=== PATIENT | female | born 1980 | race African-American/Black ===

== ENCOUNTER 2017-05-31 14:00 | Emergency (ER) | payer OTHER ==
[~2017-05-31] VITALS: Ht 154.9 cm; Wt 145.1 kg
[2017-05-31] MEDS ORDERED: IBUPROFEN 600 MG TABLET PO ONE (14:15)
[2017-05-31] MEDS ORDERED: IBUPROFEN 600 MG TABLET ONE (14:27)
--- NOTE | 2017-05-31 14:51 | NUR ---
Patient discharged to home in stable conditon. Written and verbal after care instructions given. Patient verbalizes understanding of instructions.
== END 2017-05-31 14:54 | disposition home or self-care (01) ==
LOC: ER 14:00
DX: S83.91XA Sprain of unspecified site of right knee, initial encounter (principal); J45.909 Unspecified asthma, uncomplicated; W18.30XA Fall on same level, unspecified, initial encounter; Y93.89 Activity, other specified; Y92.9 Unspecified place or not applicable; Y99.9 Unspecified external cause status
CPT/HCPCS: 73564; 99284; A4663

== ENCOUNTER 2017-07-12 03:50 | Emergency (ER) | payer OTHER ==
[~2017-07-12] VITALS: Ht 154.9 cm; Wt 145.1 kg
--- NOTE | 2017-07-12 04:00 | NUR ---
PATIENT WALKED INTO ER C/O RIGHT KNEE PAIN X2 MONTHS. HERE FOR WORSENING SYMPTOMS
[2017-07-12] MEDS ORDERED: PROMETHAZINE HCL 25 MG/1 ML VIAL IM ONE (04:15)
[2017-07-12] MEDS ORDERED: HYDROMORPHONE 1 MG/1 ML DISP.SYRIN IM ONE (04:15)
--- NOTE | 2017-07-12 04:22 | NUR ---
Crutches dispensed. Pt instructed on proper use of crutches. Patient able to demonstrate correct use of crutches.
--- NOTE | 2017-07-12 04:25 | NUR ---
Patient discharged to home in stable conditon WITH SISTER TAKING PATIENT HOME. Written and verbal after care instructions given. Patient verbalizes understanding of instructions.
[2017-07-12 04:26] VITALS: BP 142/86
[2017-07-12] MEDS ORDERED: PROMETHAZINE HCL 25 MG/1 ML VIAL ONE (04:28)
[2017-07-12] MEDS ORDERED: HYDROMORPHONE 4 MG/1 ML DISP.SYRIN ONE (04:29)
== END 2017-07-12 04:27 | disposition home or self-care (01) ==
LOC: ER 03:53
DX: M25.561 Pain in right knee (principal); J45.909 Unspecified asthma, uncomplicated
CPT/HCPCS: A4663; J1170; J2550

== ENCOUNTER 2017-09-30 21:16 | Emergency (ER) | payer OTHER ==
[~2017-09-30] VITALS: Ht 154.9 cm; Wt 154.2 kg
[2017-09-30] MEDS ORDERED: AMOXICILLIN-CLAVUL 875-125MG TABLET PO ONE (22:45)
[2017-09-30] MEDS ORDERED: DEXAMETHASONE SOD PHOSPHATE 4 MG INJ IM ONE (22:45)
[2017-09-30] MEDS ORDERED: AMOXICILLIN-CLAVUL 875-125MG TABLET ONE (22:46)
[2017-09-30] MEDS ORDERED: DEXAMETHASONE SOD PHOSPHATE 4 MG INJ ONE (22:46)
--- NOTE | 2017-09-30 22:52 | NUR ---
Patient discharged to home in stable conditon. Written and verbal after care instructions given. Patient verbalizes understanding of instructions. Ambulated from ER with stable gait. All belongings with patient. VSS. No c/o pain or acute distress at this time. Respirations even and unlaored. No chest pain/nausea/vomiting at this time.
[2017-09-30 22:57] VITALS: BP 140/77
== END 2017-09-30 22:58 | disposition home or self-care (01) ==
LOC: ER 21:17
DX: K12.2 Cellulitis and abscess of mouth (principal); J02.9 Acute pharyngitis, unspecified; J04.0 Acute laryngitis; B35.0 Tinea barbae and tinea capitis; J45.909 Unspecified asthma, uncomplicated
CPT/HCPCS: 96372; 99283; J1100

== ENCOUNTER 2017-10-10 15:05 | Emergency (ER) | payer OTHER ==
[~2017-10-10] VITALS: Ht 154.9 cm; Wt 154.2 kg
--- NOTE | 2017-10-10 15:45 | NUR ---
Patient discharged to home in stable conditon. Written and verbal after care instructions given. Patient verbalizes understanding of instructions.
== END 2017-10-10 15:54 | disposition home or self-care (01) ==
LOC: ER 15:05
DX: H10.9 Unspecified conjunctivitis (principal); J45.909 Unspecified asthma, uncomplicated
CPT/HCPCS: A4663

== ENCOUNTER 2019-06-11 16:24 | Emergency (ER) | payer OTHER ==
[~2019-06-11] VITALS: Ht 157.5 cm; Wt 154.2 kg
--- NOTE | 2019-06-11 16:45 | NUR ---
PATIENT WAS SEEN BY .
--- NOTE | 2019-06-11 17:00 | NUR ---
THROAT SWAB SPECIMEN SENT TO LAB
--- NOTE | 2019-06-11 17:45 | NUR ---
DC, RX AND FOLLOW UP INSTRUCTIONS GIVEN AND EXPLAINED TO PATIENT WHO STATES SHE UNDERSTANDS ALL INSTRUCTIONS.
== END 2019-06-11 17:47 | disposition home or self-care (01) ==
LOC: ER 16:24
DX: J02.9 Acute pharyngitis, unspecified (principal); B34.9 Viral infection, unspecified; J45.909 Unspecified asthma, uncomplicated
CPT/HCPCS: 36415; 86403; 87070; A4663

== ENCOUNTER 2019-09-29 12:48 | Emergency (ER) | payer OTHER ==
[~2019-09-29] VITALS: Ht 157.5 cm; Wt 172.4 kg
--- NOTE | 2019-09-29 13:10 | NUR ---
PATIENT IS IN ROOM 4B. PLACED ON A MONITOR. 12 LEAD EKG IN PROCESS....
[2019-09-29 14:19] LABS: CREATININE 0.8 mg/dL (0.6-1.3); POTASSIUM 4.4 mmol/L (3.5-5.1)
[2019-09-29 14:29] LABS: BASOPHILS % (AUTO) 0.3 % (0.0-2.0); EOSINOPHILS # (AUTO) 0.2 K/uL (0.0-0.7); EOSINOPHILS % (AUTO) 1.4 % (0.0-7.0); HEMATOCRIT 39.9 % (31.2-41.9); HEMOGLOBIN 12.9 g/dL (10.9-14.3); LYMPHOCYTES # (AUTO) 2.8 K/uL (20.0-40.0); LYMPHOCYTES % (AUTO) 25.5 % (20.5-51.5); MEAN CORPUSCULAR HEMOGLOBIN 29.6 uug (24.7-32.8); MEAN CORPUSCULAR HGB CONC 32 g/dL (32.3-35.6); MEAN CORPUSCULAR VOLUME 91.5 fL (75.5-95.3); MONOCYTES # (AUTO) 0.7 K/uL (2.0-10.0); MONOCYTES % (AUTO) 6.2 % (0.0-11.0); NEUTROPHILS # (AUTO) 7.3 K/uL (1.8-8.9); NEUTROPHILS % (AUTO) 66.6 % (38.5-71.5); PLATELET COUNT (AUTO) 187 K/uL (179-408); RED BLOOD CELL COUNT(AUTO) 4.35 MIL/uL (3.63-4.92); WHITE BLOOD COUNT (AUTO) 10.9 K/uL (3.8-11.8)
--- NOTE | 2019-09-29 14:55 | NUR ---
PATIENT IS AWAKE AND ALERT IN NO DISTRESS.
--- NOTE | 2019-09-29 15:02 | NUR ---
AWAITING TEST RESULTS. PATIENT IS AWAKE AND ALERT WITH NO NEW COMPLAINTS
--- NOTE | 2019-09-29 15:50 | NUR ---
IV removed. Catheter intact and site benign. Pressure and 4x4 gauze applied to site. No bleeding noted.
--- NOTE | 2019-09-29 15:50 | NUR ---
DC AND FOLLOW UP INSTRUCTIONS GIVEN AND EXPLAINED TO PATIENT WHO STATES SHE UNDERSTANDS ALL INSTRUCTIONS
== END 2019-09-29 15:51 | disposition home or self-care (01) ==
LOC: ER 12:48
DX: R07.89 Other chest pain (principal); R05 Cough; J45.909 Unspecified asthma, uncomplicated; Z60.2 Problems related to living alone
CPT/HCPCS: 36415; 70030-TC; 71045; 85025; 93005; A4663

== ENCOUNTER 2020-03-19 03:58 | Emergency (ER) | payer OTHER ==
[~2020-03-19] VITALS: Ht 154.9 cm; Wt 172.4 kg
--- NOTE | 2020-03-19 04:05 | NUR ---
Dr Casarez at bedside for MSE.
[2020-03-19] MEDS ORDERED: HYDROCODONE/APAP 10-325 MG TABLET PO ONE (04:15)
[2020-03-19] MEDS ORDERED: ONDANSETRON ODT 4 MG TAB.RAPDIS SL ONE (04:15)
[2020-03-19] MEDS ORDERED: SILVER SULFADIAZINE 1% CREAM 50 GM TP ONE (04:15)
[2020-03-19] MEDS ORDERED: TDAP DIPH,PERTUSS,TET VAC/PF 0.5 ML DISP.SYRIN IM ONE ×2 (04:15→04:19)
[2020-03-19] MEDS ORDERED: ONDANSETRON ODT 4 MG TAB.RAPDIS ONE (04:18)
[2020-03-19] MEDS ORDERED: HYDROCODONE/APAP 10-325 MG TABLET ONE (04:18)
--- NOTE | 2020-03-19 04:57 | NUR ---
Patient discharged to home in stable condition. Written and verbal after care instructions given. Pt will hop picker Silvadene cream from own pharmacy. MD and RN instructed how to administer it, MD also ordered to provide patient with gauze and clear dressing to dress the wound. Prescription medications also reviewed. Patient verbalizes understanding of instructions. Stressed follow up or return to ER for worsening s/s. Ambulated out of ER in steady gait.
[2020-03-19 04:58] VITALS: BP 150/100
== END 2020-03-19 05:02 | disposition home or self-care (01) ==
LOC: ER 03:59
DX: T21.22XA Burn of second degree of abdominal wall, initial encounter (principal); T31.0 Burns involving less than 10% of body surface; T79.9XXA Unspecified early complication of trauma, initial encounter; X19.XXXA Contact with other heat and hot substances, initial encounter; Y93.G9 Activity, other involving cooking and grilling; Y92.89 Other specified places as the place of occurrence of the external cause; E66.01 Morbid (severe) obesity due to excess calories; Z68.45 Body mass index [BMI] 70 or greater, adult; J45.909 Unspecified asthma, uncomplicated
CPT/HCPCS: 16020; 90715; A4663; Q0162

== ENCOUNTER 2020-09-05 22:18 | Emergency (ER) | payer OTHER ==
[~2020-09-05] VITALS: Ht 154.9 cm; Wt 172.4 kg
--- NOTE | 2020-09-05 22:20 | NUR ---
Dr. Flynn at bedside for MSE.
[2020-09-05 23:14] LABS: BASOPHILS # (AUTO) 0.1 K/uL (0.0-8.0); BASOPHILS % (AUTO) 0.7 % (0.0-2.0); EOSINOPHILS # (AUTO) 0.1 K/uL (0.0-0.7); HEMATOCRIT 40.7 % (31.2-41.9); HEMOGLOBIN 13.2 g/dL (10.9-14.3); LYMPHOCYTES # (AUTO) 2.7 K/uL (20.0-40.0); LYMPHOCYTES % (AUTO) 26.1 % (20.5-51.5); MEAN CORPUSCULAR HEMOGLOBIN 29.5 uug (24.7-32.8); MEAN CORPUSCULAR HGB CONC 32 g/dL (32.3-35.6); MEAN CORPUSCULAR VOLUME 91.5 fL (75.5-95.3); MONOCYTES # (AUTO) 0.7 K/uL (2.0-10.0); MONOCYTES % (AUTO) 6.9 % (0.0-11.0); NEUTROPHILS # (AUTO) 6.6 K/uL (1.8-8.9); NEUTROPHILS % (AUTO) 65.3 % (38.5-71.5); PLATELET COUNT (AUTO) 199 K/uL (179-408); RED BLOOD CELL COUNT(AUTO) 4.45 MIL/uL (3.63-4.92); WHITE BLOOD COUNT (AUTO) 10.2 K/uL (3.8-11.8)
[2020-09-05] MEDS ORDERED: NITROGLYCERIN 0.4 MG/TAB BOTTLE SL ONE ×2 (23:15→23:23)
[2020-09-05] MEDS ORDERED: ASPIRIN 325 MG TABLET PO ONE (23:15)
[2020-09-05 23:19] LABS: POTASSIUM 3.8 mmol/L (3.5-5.1)
[2020-09-05] MEDS ORDERED: ASPIRIN 325 MG TABLET ONE (23:23)
[2020-09-05 23:31] LABS: BILIRUBIN,DIRECT 0.1 mg/dL (0.0-0.2); BILIRUBIN,TOTAL 0.4 mg/dL (0.2-1.0); TOTAL PROTEIN, SERUM 7.6 g/dL (6.4-8.2)
[2020-09-06] MEDS ORDERED: IOHEXOL 350 100 ML INFUS..BTL ONE (00:12)
[2020-09-06] MEDS ORDERED: IV NORMAL SALINE 250 ML IV ONE (00:12)
[2020-09-06] MEDS ORDERED: SWABABLE VALVE TRANSFER SET EA MC ONE (00:12)
--- NOTE | 2020-09-06 00:19 | NUR ---
Pt out of ER for CT.
--- NOTE | 2020-09-06 00:30 | NUR ---
Pt back to ER from CT. CTA not done due to patient's weight. made aware.
--- NOTE | 2020-09-06 01:51 | NUR ---
Pt out of ER for VQ scan.
--- NOTE | 2020-09-06 02:00 | NUR ---
Pt back to ER from VQ scan. Ultrasound at bedside.
--- NOTE | 2020-09-06 02:52 | NUR ---
Pt out of ER for VQ scan.
--- NOTE | 2020-09-06 03:29 | NUR ---
Pt back to ER from VQ scan.
--- NOTE | 2020-09-06 05:03 | NUR ---
Patient discharged to home in stable condition. Written and verbal after care instructions given. Patient verbalizes understanding of instructions. Stressed follow up or return to ER for worsening s/s. Patient out of ER with steady gait, no acute signs of distress, VSS, all belongings taken, IV site discontinued, provided with a copy of lab results, Xray and ultrasound results, provided with a CD of images.
[2020-09-06 05:05] VITALS: BP 138/70
== END 2020-09-06 05:05 | disposition home or self-care (01) ==
LOC: ER 22:22
DX: R07.9 Chest pain, unspecified (principal); Z82.49 Family history of ischemic heart disease and other diseases of the circulatory system; E66.01 Morbid (severe) obesity due to excess calories; Z68.45 Body mass index [BMI] 70 or greater, adult; R03.0 Elevated blood-pressure reading, without diagnosis of hypertension; J45.909 Unspecified asthma, uncomplicated
CPT/HCPCS: 36415 ×2; 71045; 78580; 80048; 80076; 83880; 84484 ×2; 84702; 85025; 85379; 87426; 93005; 93970; 99285; A9540; Q9967; 70030-TC; A4663; J7050

== ENCOUNTER 2020-12-23 23:59 | Emergency (ER) | payer OTHER ==
[~2020-12-23] VITALS: Ht 154.9 cm; Wt 172.4 kg
[2020-12-24] MEDS ORDERED: HYDROMORPHONE 1 MG/1 ML DISP.SYRIN IM ONE (00:30)
[2020-12-24] MEDS ORDERED: ONDANSETRON 4 MG/2 ML VIAL IM ONE (00:30)
[2020-12-24] MEDS ORDERED: ONDANSETRON 4 MG/2 ML VIAL ONE (00:34)
[2020-12-24] MEDS ORDERED: HYDROMORPHONE 2 MG/1 ML DISP.SYRIN ONE (00:34)
[2020-12-24] MEDS ORDERED: HYDR-3980 PO (00:55)
--- NOTE | 2020-12-24 01:14 | NUR ---
STEPHEN WRAPPED APPLIED TO LEG KNEE , PROVIDED WITH CRUTCHES , ACCOMPANIED BY CYNTHIA
== END 2020-12-24 01:16 | disposition home or self-care (01) ==
LOC: ER 12-24 00:01
DX: M17.12 Unilateral primary osteoarthritis, left knee (principal); E66.9 Obesity, unspecified; Z68.45 Body mass index [BMI] 70 or greater, adult
CPT/HCPCS: 73564; 96372 ×2; 99284; J1170; J2405; A4663

== ENCOUNTER 2022-09-13 21:20 | Emergency (ER) | payer OTHER ==
[~2022-09-13] VITALS: Ht 154.9 cm; Wt 176.9 kg
[~2022-09-13 21:20] MED LIST: HYDR-3980 PO
[2022-09-13] MEDS ORDERED: HYDR-3972 PO (22:35)
--- NOTE | 2022-09-13 22:45 | NUR ---
Patient discharged to home in stable condition. Written and verbal after care instructions given. Patient verbalizes understanding of instructions. Stressed follow up or return to ER for worsening s/s. Patient is a/ox4, NAD noted. patient is able to walk with steady gait
[2022-09-13 23:00] VITALS: BP 130/78
== END 2022-09-13 23:03 | disposition home or self-care (01) ==
LOC: ER 21:20
DX: S60.221A Contusion of right hand, initial encounter (principal); W22.8XXA Striking against or struck by other objects, initial encounter; Y92.89 Other specified places as the place of occurrence of the external cause; E66.01 Morbid (severe) obesity due to excess calories; Z68.45 Body mass index [BMI] 70 or greater, adult
CPT/HCPCS: 73130; A4663

== ENCOUNTER 2024-05-22 14:04 | Emergency (ER) | payer OTHER ==
[~2024-05-22] VITALS: Ht 154.9 cm; Wt 127.0 kg
[~2024-05-22 14:04] MED LIST changes: +HYDR-3972 PO
[2024-05-22] MEDS ORDERED: HYDROCODONE/APAP 10-325 MG TABLET ONE (14:32)
[2024-05-22] MEDS ORDERED: HYDR-3980 PO (14:34)
[2024-05-22] MEDS: HYDROCODONE/APAP 10-325 MG TABLET PO ONE (14:36)
[2024-05-22 15:15] VITALS: BP 142/78; O2SAT 97
== END 2024-05-22 15:10 | disposition home or self-care (01) ==
LOC: ER 14:04
DX: M25.561 Pain in right knee (principal); E66.9 Obesity, unspecified; Z79.899 Other long term (current) drug therapy; Z68.43 Body mass index [BMI] 50.0-59.9, adult; Z88.7 Allergy status to serum and vaccine
CPT/HCPCS: 73560; 73650; A4606; A4663

== ENCOUNTER 2024-06-22 09:40 | Emergency (ER) | payer OTHER ==
[~2024-06-22] VITALS: Ht 157.5 cm; Wt 127.0 kg
[2024-06-22] MEDS ORDERED: NABU-140 PO (10:15)
[2024-06-22] MEDS ORDERED: DEXAMETHASONE SOD PHOSPHATE 4 MG INJ ONE (10:45)
[2024-06-22] MEDS ORDERED: KETOROLAC TROMETHAMINE 60 MG INJ IM ONE (10:45)
[2024-06-22] MEDS: DEXAMETHASONE SOD PHOSPHATE 4 MG INJ IM ONE (10:57)
[2024-06-22] MEDS: KETOROLAC TROMETHAMINE 60 MG INJ IM ONE (10:57)
[2024-06-22 11:00] VITALS: BP 155/86; O2SAT 96
== END 2024-06-22 11:01 | disposition home or self-care (01) ==
LOC: ER 09:40
DX: M17.11 Unilateral primary osteoarthritis, right knee (principal); M79.672 Pain in left foot; E66.9 Obesity, unspecified; Z68.43 Body mass index [BMI] 50.0-59.9, adult; Z90.89 Acquired absence of other organs
CPT/HCPCS: 99284; 96372; J1100; J1885; A4606; A4663

== ENCOUNTER 2024-09-06 13:46 | Emergency (ER) | payer OTHER ==
[~2024-09-06] VITALS: Ht 165.1 cm; Wt 113.4 kg
[~2024-09-06 13:46] MED LIST changes: +NABU-140 PO
[2024-09-06] MEDS ORDERED: HYDR-3972 PO (15:00)
[2024-09-06] MEDS ORDERED: HYDROCODONE/APAP 5-325MG TABLET ONE (15:31)
[2024-09-06] MEDS: HYDROCODONE/APAP 5-325MG TABLET PO ONE (15:32)
[2024-09-06 16:38] VITALS: BP 119/77; O2SAT 97
== END 2024-09-06 16:39 | disposition home or self-care (01) ==
LOC: ER 13:46
DX: S92.352A Displaced fracture of fifth metatarsal bone, left foot, initial encounter for closed fracture (principal); M25.572 Pain in left ankle and joints of left foot; E66.9 Obesity, unspecified; Z88.7 Allergy status to serum and vaccine; Z68.41 Body mass index [BMI] 40.0-44.9, adult; X50.1XXA Overexertion from prolonged static or awkward postures, initial encounter; Y93.89 Activity, other specified; Y92.89 Other specified places as the place of occurrence of the external cause; Y99.8 Other external cause status
CPT/HCPCS: 73600; 73620; A4606; A4663